=== PATIENT | male | born 1940 | race Caucasian/White ===

== ENCOUNTER 2018-02-21 10:41 | Outpatient (CLI) | payer MEDICARE, BC ==
--- NOTE | 2018-02-21 12:30 | RAD ---
KUB: INDICATIONS: History of lap band and renal calculus. COMPARISON: CT abdomen and pelvis dated 12/14/2013. FINDINGS: The laparoscopically placed gastric band appears unchanged in position. There is a 7 mm calculus ove rlying the suspected inferior pole of the right kidney, likely stable to the comparison CT. No suspi cious calcification is seen overlying the left renal shadow. The lung bases are clear. The bowel ga s pattern is unobstructed. No acute osseous abnormality is evident. IMPRESSION: 1. Right nephrolithiasis. 2. Laparoscopic gastric band. POS: [facility]
== END 2018-02-21 10:42 | disposition home or self-care (01) ==
LOC: SCSRAD 10:41
PROVIDERS: ATTEND Urology
DX: N20.0 Calculus of kidney (principal); Z98.84 Bariatric surgery status
CPT/HCPCS: 74018

== ENCOUNTER 2018-12-18 17:40 | Emergency (ER) | payer MEDICARE, BC ==
[2018-12-18 18:15] LABS: #Basophils 0.1 thou/uL (0.0-0.2); #Eosinphils 0.1 thou/uL (0.0-0.7); #Lymphocytes 1.7 thou/uL (1.20-3.40); #Monocytes 0.5 thou/uL (0.11-0.59); #Neutrophils 3.1 thou/uL (1.40-6.50); %Basophils 1.1 % (0.0-1.0); %Lymphocytes 30.8 % (21.0-51.0); %Monocytes 9.6 % (0.0-10.0); %Neutrophils 56.5 % (42.0-75.0); Hemoglobin 16.7 g/dL (14.0-18.0); Mean Corpuscular HGB CONC 34.2 g/dL (32.0-36.0); Mean Corpuscular Hemoglobin 32.2 pg (27.0-31.0); Mean Platelet Volume 7.4 fL (7.4-10.4); Platelet Count 150 thou/uL (130-400); White Blood Cell (WBC) Count 5.5 thou/uL (4.8-10.8)
[2018-12-18 18:42] LABS: ALT (SGPT) 32 U/L (8-55); AST (SGOT) 23 U/L (5-34); Albumin 4.7 g/dL (3.4-4.8); Alkaline Phosphatase 58 U/L (40-150); Anion Gap 16 mmol/L (10-20); BUN (Urea Nitrogen) 30 mg/dL (8.4-25.7); Bilirubin, Total 0.6 mg/dL (0.2-1.2); CK (CPK) 88 U/L (30-200); Calc. Creatinine Clearance 0 mL/min (70-130); Calcium 10.4 mg/dL (7.8-10.44); Carbon Dioxide 25 mmol/L (23-31); Chloride 102 mmol/L (98-107); Estimated GFR-MDRD 73; Glucose 115 mg/dL (83-110); Potassium 3.9 mmol/L (3.5-5.1); Protein, Total 7.7 g/dL (5.8-8.1); Sodium 139 mmol/L (136-145)
--- NOTE | 2018-12-18 18:46 | RAD ---
CHEST ONE VIEW: 12/18/18 HISTORY: Atrial fibrillation. Heart size appears borderline for portable technique. A pacemaker is present. The lungs are clear of any infiltrative process. There are no signs of failure. IMPRESSION: No active intrathoracic disease. POS: [facility]
== END 2018-12-18 19:13 | disposition home or self-care (01) ==
LOC: SCSER 17:40
DX: I48.91 Unspecified atrial fibrillation (principal); R53.83 Other fatigue; E11.9 Type 2 diabetes mellitus without complications; E78.5 Hyperlipidemia, unspecified; I10 Essential (primary) hypertension; F32.9 Major depressive disorder, single episode, unspecified
CPT/HCPCS: 71045; 80053; 82550; 84443; 84484; 85025; 93005

== ENCOUNTER 2019-01-21 20:30 | Outpatient (CLI) | payer MEDICARE, BC | END 2019-01-21 20:31 | disposition home or self-care (01) | LOC: SLEEPLAB 20:30 | DX: G47.33 Obstructive sleep apnea (adult) (pediatric) (principal); R06.83 Snoring; G47.00 Insomnia, unspecified; G47.10 Hypersomnia, unspecified; I10 Essential (primary) hypertension; E66.9 Obesity, unspecified; Z68.28 Body mass index [BMI] 28.0-28.9, adult | CPT/HCPCS: 95811 ==

== ENCOUNTER 2019-03-05 16:38 | Outpatient (CLI) | payer MEDICARE, BC ==
--- NOTE | 2019-03-05 17:06 | RAD ---
XR Abdomen 1 View/KUB 2 view abdomen series Compared to 02/21/2018 exam CLINICAL INDICATION: Urolithiasis FINDINGS: Lung basesare not visualized for comment. Calcific density overlying the right midabdomen measures 7 mm. Moderate retained fecal material is seen within colon. Partially imaged catheter tubing overlies the left abdomen. No acute osseous pathology. IMPRESSION: 7 mm calcific density projects at the right mid abdomen, grossly stable.
== END 2019-03-05 16:39 | disposition home or self-care (01) ==
LOC: SCSRAD 16:38
PROVIDERS: ATTEND Urology
DX: N20.0 Calculus of kidney (principal); R93.5 Abnormal findings on diagnostic imaging of other abdominal regions, including retroperitoneum
CPT/HCPCS: 74018

== ENCOUNTER 2022-12-14 19:30 | Outpatient (CLI) | payer MEDICARE, BC | END 2022-12-14 19:31 | disposition home or self-care (01) | LOC: SLEEPLAB 19:30 | PROVIDERS: ATTEND Otolaryngology Plastic Surgery within the Head & Neck | DX: G47.33 Obstructive sleep apnea (adult) (pediatric) (principal); R25.9 Unspecified abnormal involuntary movements | CPT/HCPCS: 95810 ==

== ENCOUNTER 2023-02-06 08:22 | Outpatient (CLI) | payer MEDICARE, BC | END 2023-02-06 08:23 | disposition home or self-care (01) | LOC: BICRAD 08:22 | PROVIDERS: ATTEND Internal Medicine | DX: M54.6 Pain in thoracic spine (principal) | CPT/HCPCS: 72072 ==